=== PATIENT | male | born 1970 | race Caucasian/White ===

== ENCOUNTER 2017-03-18 12:57 | Emergency (ER) | payer SELFPAY ==
[~2017-03-18] VITALS: Ht 180.3 cm; Wt 108.9 kg
[2017-03-18 13:20] VITALS: BP 163/106
[2017-03-18] MEDS ORDERED: cefTRIAXone SOD 1,000 MG VL IM ONE (14:30)
== END 2017-03-18 14:53 | disposition home or self-care (01) ==
LOC: ER 12:57
DX: L03.211 Cellulitis of face (principal); K02.9 Dental caries, unspecified
CPT/HCPCS: 96372; 99283; J0696

== ENCOUNTER 2018-09-18 03:12 | Emergency (ER) | payer MEDICAID ==
[~2018-09-18] VITALS: Ht 177.8 cm; Wt 104.3 kg
[2018-09-18 04:06] LABS: Basophils # (auto) 0 uL; Basophils % (auto) 0.4 % (0.0-2.0); Eosinophils # (auto) 0.1 uL; Eosinophils % (auto) 1.5 % (0.0-7.0); Hematocrit 49.8 % (41.0-53.0); Hemoglobin 16.9 g/dL (13.5-17.5); Lymphocytes # (auto) 2.1 uL; Lymphocytes % (auto) 29.1 % (10.0-50.0); Mean Corpuscular Hemoglobin 30.7 pg (28.0-32.0); Mean Corpuscular Hgb Conc. 33.9 g/dL (32.0-36.0); Mean Corpuscular Volume 90.7 fL (80.0-100.0); Monocytes # (auto) 0.8 uL; Monocytes % (auto) 11.2 % (0.0-12.0); Neutrophils # (auto) 4.2 uL; Neutrophils % (auto) 57.8 % (37.0-80.0); Platelet Count (auto) 205 10^3/uL (140-450); Red Blood Cells 5.49 10^6/uL (4.5-5.90); Red Cell Distribution Width 13.2 % (11.8-14.3); White Blood Cell 7.3 10^3/uL (4.4-10.8)
[2018-09-18 04:15] LABS: Albumin 3.8 g/dL (3.4-5.0); Calcium 8.7 mg/dL (8.5-10.1); Potassium 4.2 mmol/L (3.5-5.1)
[2018-09-18 04:18] LABS: BUN/Creatinine Ratio 14.5; Bilirubin, Total 0.8 mg/dL (0.2-1.0); Total Protein 7.8 g/dL (6.4-8.2)
[2018-09-18] MEDS ORDERED: SODIUM CHLORIDE 0.9% 1,000 ML IV ONE (07:39)
[2018-09-18] MEDS ORDERED: KETOROLAC TROMETH 30 MG/ML 1ML VIAL IV ONE (07:45)
[2018-09-18] MEDS ORDERED: ONDANSETRON HCL 4 MG/2 ML VIAL IV ONE (07:45)
[2018-09-18] MEDS ORDERED: TETANUS-DIPTH-ACEL PERTUSSIS 0.5ML SYRG IM ONE (07:45)
[2018-09-18] MEDS ORDERED: cefTRIAXone 1GM/50ML D5W 50 ML IV ONE (07:45)
[2018-09-18] MEDS ORDERED: InsuLIN REG 1unit/0.01ml Soln (100units/ml) IV ONE (07:45)
[2018-09-18] MEDS ORDERED: ALPRAZolam 0.5 MG TAB PO ONE (11:30)
[2018-09-18 11:35] LABS: Urine WBC None Seen /hpf (0 - 3)
[2018-09-18 11:54] LABS: Urine Bacteria NONE SEEN /hpf (None Seen); Urine Blood Negative /uL (Negative); Urine Mucus FEW (None Seen); Urine Specific Gravity 1.044 (1.001-1.035)
[2018-09-18] MEDS ORDERED: THIAMINE INJ 100 MG, MULTIPLE VITAMIN 10 ML, FOLIC ACID 1 MG, MAGNESIUM SULF SDV 50% 8 ... IV SCH ×5 (12:00)
[2018-09-18 13:05] VITALS: BP 132/91
== END 2018-09-18 13:21 | disposition home or self-care (01) ==
LOC: ER 03:12
DX: L03.211 Cellulitis of face (principal); K02.9 Dental caries, unspecified; E11.9 Type 2 diabetes mellitus without complications; I10 Essential (primary) hypertension; E03.9 Hypothyroidism, unspecified; G62.9 Polyneuropathy, unspecified
CPT/HCPCS: 36415; 70486; 71046; 80053; 81001; 82962; 83036; 83735; 84443; 85025; 90471; 90715; 93005; 96365; 96366; 96367; 96375; 99284; J0696; J1885; J2405; J3411; J3475; J7030

== ENCOUNTER 2018-12-27 22:00 | Emergency (ER) | payer MEDICAID ==
[~2018-12-27] VITALS: Ht 180.3 cm; Wt 108.9 kg
[2018-12-27 22:39] VITALS: BP 153/108
[2018-12-28 00:05] LABS: Basophils # (auto) 0 uL; Basophils % (auto) 0.8 % (0.0-2.0); Eosinophils # (auto) 0.1 uL; Eosinophils % (auto) 1.9 % (0.0-7.0); Hematocrit 44.5 % (41.0-53.0); Hemoglobin 15.4 g/dL (13.5-17.5); Lymphocytes % (auto) 19.6 % (10.0-50.0); Mean Corpuscular Hemoglobin 31.7 pg (28.0-32.0); Mean Corpuscular Hgb Conc. 34.5 g/dL (32.0-36.0); Monocytes # (auto) 0.9 uL; Neutrophils # (auto) 3.2 uL; Neutrophils % (auto) 60.7 % (37.0-80.0); Nucleated Red Blood Cells % 0.1 %; Platelet Count (auto) 169 10^3/uL (140-450); Red Blood Cells 4.84 10^6/uL (4.5-5.90); Red Cell Distribution Width 13.6 % (11.8-14.3); White Blood Cell 5.3 10^3/uL (4.4-10.8)
[2018-12-28 00:14] LABS: Urine Bacteria NONE SEEN /hpf (None Seen); Urine Blood Negative /uL (Negative); Urine Mucus FEW (None Seen); Urine Specific Gravity 1.033 (1.001-1.035); Urine WBC None Seen /hpf (0 - 3)
[2018-12-28 00:24] LABS: INR 0.9 (0.9-1.15); Partial Thromboplastin Time 24.5 sec (23.78-33.04); Prothrombin Time 9.7 sec (9.27-12.13)
[2018-12-28 00:29] LABS: Albumin 4.1 g/dL (3.4-5.0); BUN/Creatinine Ratio 17.8; Calcium 8.5 mg/dL (8.5-10.1); Magnesium 2.4 mg/dL (1.6-2.6); Potassium 3.7 mmol/L (3.5-5.1)
[2018-12-28 00:35] LABS: Bilirubin, Total 0.5 mg/dL (0.2-1.0); Total Protein 7.6 g/dL (6.4-8.2)
== END 2018-12-28 05:14 | disposition left against medical advice (07) ==
LOC: ER 22:04
DX: R05 Cough (principal); Z53.21 Procedure and treatment not carried out due to patient leaving prior to being seen by health care provider
CPT/HCPCS: 36415; 71046; 80053; 81001; 83036; 83605; 83735; 83880; 84443; 84484; 85025; 85379; 85610; 85730; 87040; 93005

== ENCOUNTER 2018-12-28 16:06 | Emergency (ER) | payer MEDICAID ==
[~2018-12-28] VITALS: Ht 180.3 cm; Wt 108.9 kg
[2018-12-28] MEDS ORDERED: SODIUM CHLORIDE 0.9% 1,000 ML IVB ONE (17:47)
[2018-12-28 18:41] LABS: Basophils # (auto) 0 uL; Basophils % (auto) 0.3 % (0.0-2.0); Eosinophils # (auto) 0.1 uL; Eosinophils % (auto) 1.5 % (0.0-7.0); Hematocrit 44.5 % (41.0-53.0); Lymphocytes # (auto) 0.9 uL; Mean Corpuscular Hemoglobin 31.1 pg (28.0-32.0); Mean Corpuscular Hgb Conc. 33.7 g/dL (32.0-36.0); Mean Corpuscular Volume 92.4 fL (80.0-100.0); Monocytes # (auto) 0.9 uL; Monocytes % (auto) 16.4 % (0.0-12.0); Neutrophils # (auto) 3.6 uL; Neutrophils % (auto) 65.8 % (37.0-80.0); Platelet Count (auto) 168 10^3/uL (140-450); Red Blood Cells 4.82 10^6/uL (4.5-5.90); Red Cell Distribution Width 13.6 % (11.8-14.3); White Blood Cell 5.4 10^3/uL (4.4-10.8)
[2018-12-28 19:04] LABS: Urine Bacteria NONE SEEN /hpf (None Seen); Urine Blood Negative /uL (Negative); Urine Specific Gravity 1.029 (1.001-1.035); Urine WBC 1 /hpf (0 - 3)
[2018-12-28 19:16] LABS: INR 0.9 (0.9-1.15); Partial Thromboplastin Time 24.3 sec (23.78-33.04); Prothrombin Time 9.7 sec (9.27-12.13)
[2018-12-28 19:26] LABS: Albumin 3.8 g/dL (3.4-5.0); BUN/Creatinine Ratio 18.4; Calcium 8.9 mg/dL (8.5-10.1)
[2018-12-28 19:31] LABS: Bilirubin, Total 0.4 mg/dL (0.2-1.0); Total Protein 7.3 g/dL (6.4-8.2)
[2018-12-28 19:50] VITALS: BP 153/93
[2018-12-28] MEDS ORDERED: ASPirin-EC 81 mg tab PO ONE (20:45)
[2018-12-28] MEDS ORDERED: cefTRIAXone 1GM/50ML D5W 50 ML IV ONE (21:15)
== END 2018-12-28 21:38 | disposition home or self-care (01) ==
LOC: ER 16:06
DX: I24.9 Acute ischemic heart disease, unspecified (principal); J18.9 Pneumonia, unspecified organism; R79.89 Other specified abnormal findings of blood chemistry
CPT/HCPCS: 36415; 80053; 81001; 83605; 83735; 84484; 85025; 85379; 85610; 85730; 87040; 93005; 94761

== ENCOUNTER 2018-12-30 16:55 | Emergency (ER) | payer MEDICAID ==
[~2018-12-30] VITALS: Ht 180.3 cm; Wt 108.9 kg
[2018-12-30 17:07] VITALS: BP 140/109
[2018-12-30] MEDS ORDERED: ALBUTEROL SULF 2.5 MG/0.5ML(0.5%) NEB SOLN NEB ONE (19:00)
[2018-12-30] MEDS ORDERED: cefTRIAXone SOD 1,000 MG VL IM ONE (19:00)
[2018-12-30] MEDS ORDERED: IPRATROPIUM BROM 0.5 MG/2.5ML INH SOL NEB ONE (19:00)
[2018-12-30] MEDS ORDERED: methylPREDNISolone SOD SUCC 125 MG/2 ML VL IM ONE (19:00)
== END 2018-12-30 19:45 | disposition home or self-care (01) ==
LOC: ER 17:00
DX: J40 Bronchitis, not specified as acute or chronic (principal); F12.10 Cannabis abuse, uncomplicated; Z59.0 Homelessness
CPT/HCPCS: 93005; 94640; 96372; 99283; J0696; J2930; J7611; J7644

== ENCOUNTER 2024-07-19 10:34 | Inpatient (IN) | payer MEDICAID ==
[~2024-07-19] VITALS: Ht 175.3 cm; Wt 101.9 kg
--- NOTE | 2024-07-19 11:14 | ED.PDOC ---
Musculoskeletal HPI Comments A 53 YEAR OLD MALE PRESENTS TO THE ED WITH COMPLAINT OF LEFT 2ND TOE PAIN AND REDNESS. PATIENT STATES HE HAS BEEN EXPERIENCING REDNESS AND SWELLING ON THE TOES OF HIS LEFT FOOT DUE TO A FUNGAL INFECTION OFF AND ON FOR THE PAST 1.5 MONTHS. PATIENT REPORTS HE ACCIDENTALLY DROPPED A HAMMER ON HIS LEFT 2ND TOE 3 DAYS AGO AND IS NOW EXPERIENCING INCREASED REDNESS, SWELLING, AND PAIN TO HIS LEFT 2ND TOE. PATIENT NOTES HE RAN OUT OF HIS METFORMIN AND COREG 1 MONTH AGO AND HAS NOT TAKEN ANY MEDICATIONS SINCE THEN. AT THIS TIME, PT'S BLOOD PRESSURE IS HIGH. PATIENT DENIES FEVER, CHILLS, SHORTNESS OF BREATH, CHEST PAIN, ABDOMINAL PAIN, NAUSEA, VOMITING, HEADACHE, OR OTHER COMPLAINTS. NO OTHER SYMPTOMS OR MODIFYING FACTORS AT THIS TIME. PATIENT IS ALERT, ORIENTED X 4, AND HAS STEADY GAIT. Chief Complaint: Wound Check Time Seen by MD: 10:53 Primary Care Provider: NONE Reviewed Notes: Nurses Notes, Medications, Allergies Allergies: Coded Allergies: No Known Drug Allergy (Verified Allergy, Unknown, 09/18/18) Information Source: Patient Mode of Arrival: Ambulatory Location: Left Extremity Location: Toe 2 Timing: Days, Weeks Prehospital treatment: None Severity: Moderate Able to Move Extremity: Yes Bear Weight: Fully Pain: Moderate Mechanism: Blunt Trauma Circumstances: Accident Onset of Symptoms: After Trauma Symptoms: Swelling, Pain, Erythema DVT Risk Factors: NONE Last Tetanus: Unknown Associated signs and symptoms: Foot pain (LEFT 2ND TOE ) Past Medical History PAST MEDICAL HISTORY: DM, HTN, [place] Surgical History: Denies all surgeries Family History Family History: Reviewed,noncontributory to illness Social History Smoker: Cigarettes Alcohol: Rarely, Occasionally Drugs: Marijuana Lives In: Homeless Constitutional: denies: chills, diaphoresis, fatigue, fever, malaise, sweats, weakness, others EENTM: denies: blurred vision, double vision, ear bleeding, ear discharge, ear drainage, ear pain, ear ringing, eye pain, eye redness, hearing loss, mouth pain, mouth swelling, nasal discharge, nose bleeding, nose congestion, nose pain, photophobia, tearing, throat pain, throat swelling, voice changes, others Respiratory: denies: cough, hemoptysis, orthopnea, SOB at rest, shortness of breath, SOB with excertion, stridor, wheezing, others Cardiovascular: denies: chest pain, dizzy spells, diaphoresis, Dyspnea on exertion, edema, irregular heart beat, left arm pain, lightheadedness, palpitations, PND, syncope, others Gastrointestinal: denies: abdomen distended, abdominal pain, blood streaked bowels, constipated, diarrhea, dysphagia, difficulty swallowing, hematemesis, melena, nausea, poor appetite, poor fluid intake, rectal bleeding, rectal pain, vomiting, others Genitourinary: denies: burning, dysuria, flank pain, frequency, hematuria, incontinence, penile discharge, penile sore, pain, testicle pain, testicle swelling, urgency, others Neurological: denies: dizziness, fainting, headache, left sided numbness, left sided weakness, numbness, paresthesia, pre-existing deficit, right sided numbness, right sided weakness, seizure, speech problems, tingling, tremors, w eakness, others Musculoskeletal: reports: joint pain, joint swelling, others (LEFT 2ND TOE PAIN); denies: back pain, gout, muscle pain, muscle stiffness, neck pain Integumetry: reports: wounds (LEFT 2ND TOE ), others (WOUND ON LEFT 2ND TOE WITH REDNESS AND SWELLING); denies: bruises, change in color, change in hair/nails, dryness, laceration, lesions, lumps, rash Allergic/Immunocompromised: denies: Difficulty Healing, Frequent Infections, Hives, Itching, others Hematologic/Lymphatic: denies: anemia, blood clots, easy bleeding, easy bruising, swollen glands, others Endocrine: denies: excessive hunger, excessive sweating, excessive thirst, excessive urination, flushing, intolerance to cold, intolerance to heat, unexplained weight gain, unexplained weight loss, others Psychiatric: denies: anxiety, bipolar disorder, depression, hopeless, panic disorder, schizophrenia, sleepless, suicidal, others All Other Systems: Reviewed and Negative Physical Exam General Appearance: No Apparent Distress, Normal, Other (ANXIOUS ) HEENT: Normal ENT Inspection, PERRL/EOMI, Pharynx Normal, TMs Normal Neck: Full Range of Motion, Non-Tender, Normal, Normal Inspection Respiratory: Chest Non-Tender, Lungs Clear, No Accessory Muscle Use, No Respiratory Distress, Normal Breath Sounds Cardiovascular: No Edema, No JVD, No Murmur, No Gallop, Normal Peripheral Pulses, Regular Rate/Rhythm Breast Exam: Deferred Gastrointestinal: No Organomegaly, Non Tender, No Pulsatile Mass, Normal Bowel Sounds, Soft Genitalia: Deferred Pelvic: Deferred Rectal: Deferred Extremities: Decreased range of motion, No calf tenderness, Normal capillary refill, No pedal edema, Swelling (AND TENDERNESS WITH REDNESS ON LEFT 2ND TOE. ), Tender (AND SWELLING ON LEFT 2ND TOE, NO DEFORMITY. ) Musculoskeletal : Apperance: Normal Neurologic: Alert, obgyn hospitalist physician II-XII nml as Tested, No Motor Deficits, Normal Affect, Normal Mood, No Sensory Deficits Cerebellar Function: Normal Reflexes: Normal Skin: Dry, Warm, Wounds (LOCALIZED REDNESS, SWELLING AND CRUSTED WOUND ON LEFT 2ND TOE, DIABETIC FOOT ULCER, NO PUS DRAINAGE. ) Peripheral Pulses: 2+ carotid (R), 2+ carotid (L), 2+ dorsalis pedis (R), 2+ dorsalis pedis (L) Lymphatic: No Adenopathy Was a procedure done? Was a procedure done?: No Differential Diagnosis EXT Differential Diagnosis: Cellulitis, Fracture, Sprain, Contusion, Strain X-Ray, Labs, Meds, VS Vital Signs Date Time Temp Pulse Resp B/P (MAP) Pulse Ox O2 Delivery O2 Flow Rate FiO2 07/19/24 13:31 101 150/86 07/19/24 12:56 98.8 93 16 145/83 (103) 96 98.8 07/19/24 11:42 100 189/101 07/19/24 11:00 121 16 98 Room Air 07/19/24 11:00 98.6 121 16 191/124 (146) 98 98.6 07/19/24 10:45 98.6 121 16 175/113 (133) 98 Lab Test 07/19/24 11:23 07/19/24 11:10 07/19/24 10:43 Range/Units White Blood Count 7.8 4.4-10.8 10^3/uL Red Blood Count 5.10 4.5-5.90 10^6/uL Hemoglobin 16.9 13.5-17.5 g/dL Hematocrit 48.6 41.0-53.0 % Mean Corpuscular Volume 95.3 80.0-100.0 fL Mean Corpuscular Hemoglobin 33.1 H 28.0-32.0 pg Mean Corpuscular Hemoglobin Concent 34.7 32.0-36.0 g/dL Red Cell Distribution Width 13.2 11.8-14.3 % Platelet Count 212 140-450 10^3/uL Mean Platelet Volume 8.7 6.9-10.8 fL Neutrophils (%) (Auto) 75.1 37.0-80.0 % Lymphocytes (%) (Auto) 9.9 L 10.0-50.0 % Monocytes (%) (Auto) 14.5 H 0.0-12.0 % Eosinophils (%) (Auto) 0.2 0.0-7.0 % Basophils (%) (Auto) 0.3 0.0-2.0 % Neutrophils # (Auto) 5.9 1.6-8.6 10 ^3/uL Lymphocytes # (Auto) 0.8 0.4-5.4 10 ^3/uL Monocytes # (Auto) 1.1 0-1.3 10 ^3/uL Eosinophils # (Auto) 0 0-0.8 10 ^3/uL Basophils # (Auto) 0 0-0.2 10 ^3/uL Nucleated Red Blood Cells 0.0 % Sodium Level 130 L 136-145 mmol/L Potassium Level 4.5 3.5-5.1 mmol/L Chloride Level 98 98-107 mmol/L Carbon Dioxide Level 24 20-31 mmol/L Anion Gap 8 5-15 Blood Urea Nitrogen 15 9-23 mg/dL Creatinine 0.99 0.700-1.30 mg/dL Glomerular Filtration Rate Calc 90 >90 mL/min BUN/Creatinine Ratio 15.2 10.0-20.0 Serum Glucose 168 H 74-106 mg/dL Lactic Acid Level 1.6 0.4-2.0 mmol/L Calcium Level 9.6 8.7-10.4 mg/dL C-Reactive Protein High Sensitivity 2.39 H <1.0 mg/dL Urine Opiates Screen Neg NEGATIVE Urine Fentanyl Screen Neg NEGATIVE Urine Barbiturates Screen Neg NEGATIVE Urine Phencyclidine Screen Neg NEGATIVE Urine Amphetamines Screen Pos NEGATIVE Urine Benzodiazepines Screen Neg NEGATIVE Urine Cocaine Screen Neg NEGATIVE Urine Cannabinoids Screen Neg NEGATIVE POC Glucose 185 H 70-106 mg/dl Current Medications Medications (Trade) Dose Ordered Sig/Carmen Route Start Time Stop Time Status Last Admin Sodium Chloride 1,000 ml @ 1,000 mls/hr Q1H ONCE IV 07/19/24 11:15 07/19/24 12:14 DC 07/19/24 11:22 Labetalol HCl (Labetalol HCl) 20 mg ONCE ONCE IV 07/19/24 11:15 07/19/24 11:16 DC 07/19/24 11:42 Vancomycin HCl 200 ml @ 200 mls/hr ONCE ONCE IV 07/19/24 11:15 07/19/24 12:14 DC 07/19/24 11:42 Piperacillin Sod/ Tazobactam Sod 100 ml @ 100 mls/hr ONCE ONCE IV 07/19/24 11:15 07/19/24 12:14 DC 07/19/24 11:42 CLINICAL INDICATION: LEFT 2ND TOE PAIN POST INJURY TECHNIQUE: 3 views of the left foot XY L FOOT 3 VIEW XRAY Comparison: None FINDINGS/IMPRESSION: There is no evidence of acute fracture or dislocation. Mild poorly defined lucency within the terminal tuft of the 2nd distal phalanx. Finding is suggestive of mild acro-osteolysis which is a nonspecific finding. Soft tissue irregularity over the tip of the 2nd toe which may be related to the nail plate. No evidence of radiopaque foreign bodies. ATED BY: DUANE MERINO DO DICTATED DATE/TIME: 07/19/241240 SIGNED BY: DUANE MERINO DO SIGNED DATE/TIME: 07/19/241240 CC: X-Ray, Labs, Meds, VS Comment LABS ORDERED: CBC, BMP, UA, UDS, BLOOD CULTURE, LACTIC ACID W/REFLEX, CRP REVIEWED AND INTERPRETED RESULTS: CRP 2.39, METHAMPHETAMINE POSITIVE XR FOOT LT: [INTERPRETED BY ME. TUFT FRACTURE OF 2ND DISTAL PHALANX VISUALIZED. NO DISLOCATION SEEN. NO OSTEOMYELITIS SEEN. PENDING RADIOLOGY REVIEW.] TREATMENT: NS 1 L IV, ZOSYN 3.375 G IV, VANCOMYCIN 1 G IV, AND LABETALOL 20 MG IV A 53 YEAR OLD MALE PRESENTED TO THE ED C/O INJURY AND WOUND OF LEFT 2ND TOE . UPON MY PHYSICAL EXAMINATION, THE PATIENT HAD REDNESS, SWELLING AND A WOUND NOTED TO HIS LEFT 2ND TOE, TOENAILS ON LEFT FOOT WERE CONSISTENT WITH ONYCHOMYCOSIS. MY DIFFERENTIAL DIAGNOSIS INCLUDES, DIABETIC FOOT ULCER, CELLULITIS, ERYSIPELAS, ABSCESS, ONYCHOMYCOSIS, FRACTURE, CONTUSION, SPRAIN. LABS WERE ORDERED FOR THE PATIENT WHICH REVEALED AN ELEVATED CRP OF 2.39 AND METHAMPHETAMINE BEING POSITIVE URINE. PATIENT WAS MEDICATED HERE IN THE ED WITH NS 1 L IV, ZOSYN 3.375 G IV, VANCOMYCIN 1 G IV, AND LABETALOL 20 MG IV. AN X-RAY OF THE PATIENT'S LEFT FOOT WAS DONE WHICH REVEALED A TUFT FRACTURE OF THE 2ND DISTAL PHALANX WITH NO EVIDENCE OF OSTEOMYELITIS AT THIS TIME. DUE TO THE PATIENT'S DIABETIC FOOT WOUND I HAVE DETERMINED THE PATIENT NEEDS TO BE ADMITTED TO THIS HOSPITAL FOR FURTHER TREATMENT EVALUATION. ON-CALL HOSPITALIST WILL BE CONTACTED FOR ADMISSION OF THIS PATIENT. Images Reviewed?: Images reviewed and evaluated by me Time of 1ST Reevaluation: 13:00 Reevaluation 1ST: Unchanged Patient Education/Counseling: Diagnosis, Treatment Family Education/Counseling: Diagnosis, Treatment Departure 1 Departure Time of Disposition: 13:00 Impression: Primary Impression: Diabetic foot ulcer Qualified Codes: E11.621 - Type 2 diabetes mellitus with foot ulcer; L97.529 - Non-pressure chronic ulcer of other part of left foot with unspecified severity Additional Impressions: Fracture of distal phalanx of toe of left foot Hypertensive urgency Methamphetamine abuse Disposition: ADMITTED INPATIENT Admit to: Tele Condition: Serious Critical Care Note Critical Care Time?: No Stability Stability form required: Yes Unstable for transfer: Requires medication, ED Physician Assesment, Possible rapid decline I personally scribed for ROBBI FRAGA ([email or web address]) on 07/19/24 at 11:14. Electronically submitted by Miguel Beckman ([email or web address]). I personally scribed for ROBBI FRAGA ([email or web address]) on 07/19/24 at 13:16. Electronically submitted by Miguel Beckman ([email or web address]). ROBBI FRAGA Jul 19, 2024 11:14
[2024-07-19] MEDS: SODIUM CHLORIDE 0.9% 1,000 ML IV ONE (11:22)
[2024-07-19] MEDS: VANCOMYCIN 1GM/200ML PREMIX 200 ML IV ONE (11:42)
[2024-07-19] MEDS: LABETALOL HCL 20 MG/4 ML VL IV ONE (11:42)
[2024-07-19] MEDS: PIPERACILLIN-TAZOB 3.375GM 100 ML IV ONE (11:42)
[2024-07-19 11:56] LABS: Amphetamine Screen, Urine Pos (NEGATIVE); Barbiturate Scree,Urine Neg (NEGATIVE); Benzodiazephine Screen, Urine Neg (NEGATIVE)
[2024-07-19 11:57] LABS: Cannabinoid Screen, Urine Neg (NEGATIVE); Cocaine Screen, Urine Neg (NEGATIVE); Opiate Scree,Urine Neg (NEGATIVE); Phencyclidine Screen, Urine Neg (NEGATIVE)
[2024-07-19 12:01] LABS: Chloride 98 mmol/L (98-107); Sodium 130 mmol/L (136-145)
[2024-07-19 12:02] LABS: Anion Gap 8 (5-15); Calcium 9.6 mg/dL (8.7-10.4); Carbon Dioxide 24 mmol/L (20-31)
[2024-07-19 12:07] LABS: Glucose 168 mg/dL (74-106)
[2024-07-19 12:25] LABS: BUN/Creatinine Ratio 15.2 (10.0-20.0); Blood Urea Nitrogen 15 mg/dL (9-23); CRP High Sensitivity 2.39 mg/dL (<1.0); Potassium 4.5 mmol/L (3.5-5.1)
[2024-07-19 12:28] LABS: Basophils # (auto) 0 10 ^3/uL (0-0.2); Basophils % (auto) 0.3 % (0.0-2.0); Eosinophils # (auto) 0 10 ^3/uL (0-0.8); Eosinophils % (auto) 0.2 % (0.0-7.0); Hematocrit 48.6 % (41.0-53.0); Hemoglobin 16.9 g/dL (13.5-17.5); Lymphocytes # (auto) 0.8 10 ^3/uL (0.4-5.4); Lymphocytes % (auto) 9.9 % (10.0-50.0); Mean Corpuscular Hemoglobin 33.1 pg (28.0-32.0); Mean Corpuscular Hgb Conc. 34.7 g/dL (32.0-36.0); Mean Corpuscular Volume 95.3 fL (80.0-100.0); Monocytes # (auto) 1.1 10 ^3/uL (0-1.3); Monocytes % (auto) 14.5 % (0.0-12.0); Neutrophils # (auto) 5.9 10 ^3/uL (1.6-8.6); Neutrophils % (auto) 75.1 % (37.0-80.0); Platelet Count (auto) 212 10^3/uL (140-450); Red Cell Distribution Width 13.2 % (11.8-14.3); White Blood Cell 7.8 10^3/uL (4.4-10.8)
--- NOTE | 2024-07-19 12:44 | DVH ---
CLINICAL INDICATION: LEFT 2ND TOE PAIN POST INJURY TECHNIQUE: 3 views of the left foot XY L FOOT 3 VIEW XRAY Comparison: None FINDINGS/IMPRESSION: There is no evidence of acute fracture or dislocation. Mild poorly defined lucency within the terminal tuft of the 2nd distal phalanx. Finding is suggestive of mild acro-osteolysis which is a nonspecific finding. Soft tissue irregularity over the tip of the 2nd toe which may be related to the nail plate. No evide nce of radiopaque foreign bodies.
[2024-07-19 16:35] VITALS: PULSE 106; RESP 18; O2SAT 96
[2024-07-19] MEDS: InsuLIN REG 1unit/0.01ml Soln (100units/ml) IV ONE (16:57)
[2024-07-19] MEDS: HYDROcodone-ACET 10/325MG TAB PO ONE (16:58)
[2024-07-19] MEDS ORDERED: VANCOMYCIN PER PHARMACY 0 MG IV SCH (18:30)
[2024-07-19] MEDS ORDERED: DOCUSATE SOD 100 MG CAP PO PRN (18:30)
--- NOTE | 2024-07-19 18:45 | DVHHP2 ---
Admitting Diagnosis: Toe pain History of Present Illness Patient is 53 years old male presents in ED with a complaint of left 2nd toe pain and redness. Patient states that he has been experiencing redness and swe lling on the toe of left foot due to object fall on the toe about 1/2 month ago. Patient states that object fall on his 2nd toe again about three years ago and now he has experienced increased redness and swelling and pain. The patient states that he has ran out of medication and metformin encouraged will not take any medication since then. Patient currently has elevated blood pressure. Patient denies fever chills shortness for breath chest pain abdominal pain nausea vomiting headache or other complaint. No other symptoms or modifying factors at this time. Patient had x3, has steady gait PAST MEDICAL HISTORY: DM, HTN, [place] Surgical History: Denies all surgeries Family History Family History: Reviewed,noncontributory to illness Social History Smoker: Cigarettes Alcohol: Rarely, Occasionally Drugs: Marijuana Lives In: Homeless Allergies: Coded Allergies: No Known Drug Allergy (Verified Allergy, Unknown, 09/18/18) Vital Signs Vital Signs Date Time Temp Pulse Resp B/P (MAP) Pulse Ox O2 Delivery O2 Flow Rate FiO2 07/19/24 16:41 99.8 109 20 148/100 (116) 100 99.8 07/19/24 16:35 Room Air* 0 21 Physical Exam Generally-53 years old male, sitting on chair. NAD. HEENT: AT/NC Heart: RRR Lung: CTA b/l Abd: soft, nontender, nondistended Musculoskeletal-2nd toe open lesion, no gross bleeding, tender to palpate, erythematous up to the surrounding 1st and 2nd toe and ventral side of the foot. Neuro-AO x3, strength intact sensory intact Results Labs Test 07/19/24 15:58 07/19/24 11:23 07/19/24 11:10 Range/Units POC Glucose 299 H 70-106 mg/dl White Blood Count 7.8 4.4-10.8 10^3/uL Red Blood Count 5.10 4.5-5.90 10^6/uL Hemoglobin 16.9 13.5-17.5 g/dL Hematocrit 48.6 41.0-53.0 % Mean Corpuscular Volume 95.3 80.0-100.0 fL Mean Corpuscular Hemoglobin 33.1 H 28.0-32.0 pg Mean Corpuscular Hemoglobin Concent 34.7 32.0-36.0 g/dL Red Cell Distribution Width 13.2 11.8-14.3 % Platelet Count 212 140-450 10^3/uL Mean Platelet Volume 8.7 6.9-10.8 fL Neutrophils (%) (Auto) 75.1 37.0-80.0 % Lymphocytes (%) (Auto) 9.9 L 10.0-50.0 % Monocytes (%) (Auto) 14.5 H 0.0-12.0 % Eosinophils (%) (Auto) 0.2 0.0-7.0 % Basophils (%) (Auto) 0.3 0.0-2.0 % Neutrophils # (Auto) 5.9 1.6-8.6 10 ^3/uL Lymphocytes # (Auto) 0.8 0.4-5.4 10 ^3/uL Monocytes # (Auto) 1.1 0-1.3 10 ^3/uL Eosinophils # (Auto) 0 0-0.8 10 ^3/uL Basophils # (Auto) 0 0-0.2 10 ^3/uL Nucleated Red Blood Cells 0.0 % Sodium Level 130 L 136-145 mmol/L Potassium Level 4.5 3.5-5.1 mmol/L Chloride Level 98 98-107 mmol/L Carbon Dioxide Level 24 20-31 mmol/L Anion Gap 8 5-15 Blood Urea Nitrogen 15 9-23 mg/dL Creatinine 0.99 0.700-1.30 mg/dL Glomerular Filtration Rate Calc 90 >90 mL/min BUN/Creatinine Ratio 15.2 10.0-20.0 Serum Glucose 168 H 74-106 mg/dL Lactic Acid Level 1.6 0.4-2.0 mmol/L Calcium Level 9.6 8.7-10.4 mg/dL C-Reactive Protein High Sensitivity 2.39 H <1.0 mg/dL Urine Opiates Screen Neg NEGATIVE Urine Fentanyl Screen Neg NEGATIVE Urine Barbiturates Screen Neg NEGATIVE Urine Phencyclidine Screen Neg NEGATIVE Urine Amphetamines Screen Pos NEGATIVE Urine Benzodiazepines Screen Neg NEGATIVE Urine Cocaine Screen Neg NEGATIVE Urine Cannabinoids Screen Neg NEGATIVE Primary Diagnosis Medication noncompliance Cellulitis of left 2nd toe rule out osteomyelitis hypertensive urgency amphetamine use Plan Start vanco and Zosyn for broad-spectrum antibiotics. Follow the wound culture and blood culture Podiatry consult for left foot cellulitis possible osteomyelitis Elevated ESR Check MRI left foot to evaluate for possible osteomyelitis Pain control Sliding scale Hold metformin. Resume carvedilol hydralazine prn for SBP > 165 low carb diet Full code Lovenox for prophylaxis PPI for GI prophylaxis Plan discussed with: Patient Problems List: (1) Cellulitis of left toe (2) Methamphetamine abuse Status: Acute (3) Diabetic foot ulcer Status: Acute (4) Hypertensive urgency Status: Acute Date of Service: Jul 19, 2024 Billing Provider: TROY PARISI MD Common Visit Codes: [id number] INP/OBS CARE (HIGH) TROY PARISI MD Jul 19, 2024 18:45
[2024-07-19] MEDS: CARVEDILOL 3.125 MG TAB PO SCH (19:00)
[2024-07-19] MEDS ORDERED: DEXTROSE (50%) 50ML SYRG IV PRN (19:00)
[2024-07-19] MEDS: hydrALAZINE HCL 20 MG/ML VL IV SCH (19:40)
[2024-07-19 19:50] VITALS: PULSE 102; RESP 17; O2SAT 98
[2024-07-19] MEDS: PIPERACILLIN-TAZOB 3.375GM 100 ML IV SCH (20:12)
[2024-07-19] MEDS: ACETAMINOPHEN 325 MG TAB PO PRN (20:13)
[2024-07-19] MEDS: ACCU-CHEK COMFORT CURVE STRIP VI SCH (20:33)
[2024-07-19] MEDS: InsuLIN REG 1unit/0.01ml Soln (100units/ml) SC SCH (20:56)
[2024-07-19] MEDS: SODIUM CHLOR 0.9% PF (SALINE LOCK) 10ML VIAL/SYR IV SCH (21:31)
[2024-07-19] MEDS: HYDROmorphone HCL 2 MG/ML VL/or syr IV PRN (22:19)
[2024-07-19] MEDS: ONDANSETRON HCL 4 MG/2 ML VIAL IV PRN (22:20)
[2024-07-19] MEDS: HYDROcodone-ACET 5/325MG TAB PO PRN (22:37)
[2024-07-20 05:18] LABS: Basophils # (auto) 0 10 ^3/uL (0-0.2); Basophils % (auto) 0.2 % (0.0-2.0); Eosinophils # (auto) 0 10 ^3/uL (0-0.8); Eosinophils % (auto) 0.2 % (0.0-7.0); Hematocrit 45.4 % (41.0-53.0); Hemoglobin 15.8 g/dL (13.5-17.5); Lymphocytes # (auto) 0.5 10 ^3/uL (0.4-5.4); Lymphocytes % (auto) 8.3 % (10.0-50.0); Mean Corpuscular Hemoglobin 33.4 pg (28.0-32.0); Mean Corpuscular Hgb Conc. 34.7 g/dL (32.0-36.0); Mean Corpuscular Volume 96.1 fL (80.0-100.0); Monocytes # (auto) 0.8 10 ^3/uL (0-1.3); Neutrophils # (auto) 5.1 10 ^3/uL (1.6-8.6); Neutrophils % (auto) 78.3 % (37.0-80.0); Nucleated Red Blood Cells % 0.1 %; Platelet Count (auto) 163 10^3/uL (140-450); Red Blood Cells 4.72 10^6/uL (4.5-5.90); Red Cell Distribution Width 13.6 % (11.8-14.3); White Blood Cell 6.5 10^3/uL (4.4-10.8)
[2024-07-20 05:43] LABS: Alanine Aminotransferase 27 U/L (7-40); Albumin 4.1 g/dL (3.2-4.8); Alkaline Phosphatase 80 U/L (46-116); Anion Gap 6 (5-15); Aspartate Aminotransferase 24 U/L (13-40); BUN/Creatinine Ratio 14.7 (10.0-20.0); Blood Urea Nitrogen 15 mg/dL (9-23); Calcium 8.7 mg/dL (8.7-10.4); Carbon Dioxide 24 mmol/L (20-31); Chloride 102 mmol/L (98-107); Glucose 208 mg/dL (74-106); Potassium 3.8 mmol/L (3.5-5.1); Sodium 132 mmol/L (136-145)
[2024-07-20 05:44] LABS: Bilirubin, Total 0.7 mg/dL (0.2-1.0); Total Protein 7.1 g/dL (5.7-8.2)
[2024-07-20 07:27] VITALS: PULSE 75; RESP 16; O2SAT 95
[2024-07-20] MEDS: PANTOPRAZOLE 40 MG/10 ML VIAL INJ IV SCH (08:15)
[2024-07-20] MEDS: ENOXAPARIN SOD 40 MG/0.4 ML SYRINGE SC SCH (08:15)
[2024-07-20] MEDS ORDERED: VANCOMYCIN 1GM/200ML PREMIX 200 ML IV SCH (09:30)
[2024-07-20] MEDS: VANCOMYCIN 500 MG in D5W 5% 100 ML IV SCH (11:22)
[2024-07-20] MEDS ORDERED: VANCOMYCIN 1.25GM/250ML 250 ML IV SCH (12:00)
[2024-07-20 12:18] VITALS: BP 140/80; PULSE 94; RESP 16; TEMP 99.9; O2SAT 98
--- NOTE | 2024-07-20 12:59 | DVHPN2 ---
Reviewed: Care Plan, H&P, Labs, Medications, Previous Orders, Radiology Changes from previous H/P or p: No Changes General: Per HPI Objective Vitals Vital Signs Date Time Temp Pulse Resp B/P (MAP) Pulse Ox O2 Delivery O2 Flow Rate FiO2 07/20/24 10:35 97 18 130/82 (98) 96 07/20/24 08:18 98.2 98.2 07/20/24 07:27 Room Air* 0 21 Intake/Output Intake and Output 07/20/24 07:00 Intake Total 1450 ml Balance 1450 ml Intake IV Total 1450 ml Medications Current Medications Medications Dose Ordered Sig/Carmen Route Start Time Stop Time Status Last Admin Dose Admin Sodium Chloride 10 ml Q8HR IV 07/19/24 22:00 07/20/24 05:36 10 ML Docusate Sodium 100 mg BIDPRN PRN PO 07/19/24 18:30 Acetaminophen 650 mg Q6HP PRN PO 07/19/24 18:30 07/20/24 01:26 650 MG Acetaminophen/ Hydrocodone Bitart 1 tab Q4HP PRN PO 07/19/24 18:30 07/20/24 08:14 1 TAB Hydromorphone HCl 0.5 mg Q4HP PRN IV 07/19/24 18:30 07/20/24 04:12 0.5 MG Ondansetron HCl 4 mg Q4HP PRN IV 07/19/24 18:30 07/20/24 04:12 4 MG Enoxaparin Sodium 40 mg DAILY SC 07/20/24 10:00 07/20/24 08:15 40 MG Vancomycin HCl 0 ml @ 0 mls/hr UD IV 07/19/24 18:30 Piperacillin Sod/ Tazobactam Sod 100 ml @ 25 mls/hr Q8H IV 07/19/24 20:00 07/20/24 04:11 25 MLS/HR Hydralazine HCl 10 mg Q6H IV 07/19/24 18:45 07/19/24 19:40 10 MG Pantoprazole Sodium 40 mg DAILY IV 07/20/24 10:00 07/20/24 08:15 40 MG Carvedilol 3.125 mg BID PO 07/19/24 19:00 07/20/24 08:18 3.125 MG Diagnostic Test (Pha) 1 strip ACHS 07/19/24 22:00 07/20/24 11:37 1 STRIP Insulin Human Regular ACHS SC 07/19/24 22:00 07/20/24 11:42 4 UNITS Dextrose 50 ml UD PRN IV 07/19/24 19:00 Vancomycin HCl 500 mg/Dextrose 100 ml @ 200 mls/hr Q12H IV 07/20/24 11:00 07/20/24 11:22 200 MLS/HR Laboratory Results Laboratory Tests 07/20/24 04:25 Chemistry Test 07/20/24 04:25 Albumin 4.1 g/dL (3.2-4.8) Calcium Level 8.7 mg/dL (8.7-10.4) Total Protein 7.1 g/dL (5.7-8.2) LFT Test 07/20/24 04:25 Alanine Aminotransferase (ALT) 27 U/L (7-40) Alkaline Phosphatase 80 U/L (46-116) Aspartate Amino Transferase (AST) 24 U/L (13-40) Total Bilirubin 0.7 mg/dL (0.2-1.0) Microbiology Microbiology Date/Time Source Procedure Growth Status 07/19/24 11:23 Blood Blood Culture - Preliminary Resulted Assessment/Plan Assessment/Plan Patient is 53 years old male presents in ED with a complaint of left 2nd toe pain and redness. Patient states that he has been experiencing redness and swelling on the toe of left foot due to object fall on the toe about 1/2 month ago. Patient states that object fall on his 2nd toe again about three years ago and now he has experienced increased redness and swelling and pain. The patient states that he has ran out of medication and metformin encouraged will not take any medication since then. Patient currently has elevated blood pressure. Patient denies fever chills shortness for breath chest pain abdominal pain nausea vomiting headache or other complaint. No other symptoms or modifying factors at this time. Patient had x3, has steady gait Medication noncompliance Cellulitis of left 2nd toe rule out osteomyelitis hypertensive urgency amphetamine use initial treatments Start vanco and Zosyn for broad-spectrum antibiotics. Follow the wound culture and blood culture Podiatry consult for left foot cellulitis possible osteomyelitis Elevated ESR Check MRI left foot to evaluate for possible osteomyelitis Pain control Sliding scale Hold metformin. Resume carvedilol hydralazine prn for SBP > 165 07/20/2024: continue with IV ABx. Podiatry is consulted. will f/u with recommendations Plan discussed with: Patient Date of Service: Jul 20, 2024 Billing Provider: NEFTALI LEIVA DO Common Visit Codes: [id number] INP/OBS CARE(HIGH) NEFTALI LEIVA DO Jul 20, 2024 12:59
--- NOTE | 2024-07-20 14:27 | DVH ---
EXAMINATION: MRI MRI L FOOT WO CONTRAST TECHNIQUE: MRI of the left foot was performed. The following sequences were obtained without contras t: T1 axial, stir axial, T1 coronal, stir coronal, T1 sagittal, stir sagittal HISTORY: LT TOE INFECTION; R/O OM COMPARISON: Left foot radiographs on 07/19/24 FINDINGS: No evidence of acute fracture or dislocation. At the terminal tuft of the 2nd distal phalanx there is cortical loss with mild associated T1 hypoint ensity and STIR hyperintensity. There is no evidence of well-defined mass lesions; however evaluation is limited without intravenous contrast. Marrow intensity in the remainder of the foot appears aba l. The partially visualized plantar fascia appears normal. The partially visualized sinus tarsi is unrem arkable. The visualized tendons in the foot are unremarkable. There is mild subcutaneous edema withi n the 2nd toe. No focal fluid collections are seen. IMPRESSION: Evaluation is limited due to lack of intravenous contrast. 1. Marrow edema in the 2nd distal phalanx with associated cortical erosion at the terminal tuft. Find ings could represent osteomyelitis or posttraumatic acro-osteolysis. Clinical correlation recommended . 2. Soft tissue swelling in the 2nd toe. No evidence of focal fluid collections.
[2024-07-20] MEDS ORDERED: TRAZ-228 PO (16:14)
[2024-07-20] MEDS ORDERED: METF-370 PO (16:15)
[2024-07-20] MEDS ORDERED: CARV3.1240 PO (16:15)
[2024-07-20 17:07] VITALS: TEMP 99.8
[2024-07-20 18:25] VITALS: BP 126/76; PULSE 110; RESP 16; TEMP 101.4; O2SAT 95
--- NOTE | 2024-07-20 18:51 | DVH ---
CHEST RADIOGRAPH Indication:procedure Technique: Single frontal view of the chest was obtained Comparison: None FINDINGS: Lines and Tubes: None Lungs: No focal consolidation. Pleura: No effusion. No pneumothorax. Cardiomediastinal contours: Unremarkable Bones: No acute osseous abnormality. IMPRESSION: 1. No acute cardiopulmonary disease.
[2024-07-20 20:00] VITALS: PULSE 93; RESP 20; O2SAT 96
[2024-07-20 21:00] VITALS: BP 136/86; PULSE 93; RESP 20; TEMP 100; O2SAT 96
[2024-07-21] VITALS (9 sets, daily range): BP systolic 114–136; BP diastolic 72–87; PULSE 57–92; RESP 10–20; TEMP 97.6–98.6; O2SAT 92–97
[2024-07-21 06:32] LABS: Basophils # (auto) 0 10 ^3/uL (0-0.2); Basophils % (auto) 0.2 % (0.0-2.0); Eosinophils # (auto) 0 10 ^3/uL (0-0.8); Eosinophils % (auto) 0.3 % (0.0-7.0); Hematocrit 43.1 % (41.0-53.0); Lymphocytes # (auto) 0.5 10 ^3/uL (0.4-5.4); Lymphocytes % (auto) 9.2 % (10.0-50.0); Mean Corpuscular Hgb Conc. 34.7 g/dL (32.0-36.0); Mean Corpuscular Volume 95.2 fL (80.0-100.0); Neutrophils # (auto) 4.2 10 ^3/uL (1.6-8.6); Neutrophils % (auto) 72.3 % (37.0-80.0); Platelet Count (auto) 158 10^3/uL (140-450); Red Blood Cells 4.53 10^6/uL (4.5-5.90); Red Cell Distribution Width 13.1 % (11.8-14.3); White Blood Cell 5.7 10^3/uL (4.4-10.8)
[2024-07-21 06:42] LABS: INR 1.02 (0.9-1.15); Partial Thromboplastin Time 29.4 SEC (24.5-34.5); Prothrombin Time 10.8 sec (9.3-11.8)
[2024-07-21 06:49] LABS: Alanine Aminotransferase 25 U/L (7-40); Alkaline Phosphatase 74 U/L (46-116); Anion Gap 7 (5-15); Blood Urea Nitrogen 12 mg/dL (9-23); Calcium 8.7 mg/dL (8.7-10.4); Carbon Dioxide 23 mmol/L (20-31); Chloride 101 mmol/L (98-107); Glucose 139 mg/dL (74-106); Potassium 3.6 mmol/L (3.5-5.1); Sodium 131 mmol/L (136-145)
[2024-07-21 06:50] LABS: Albumin 3.9 g/dL (3.2-4.8); Aspartate Aminotransferase 23 U/L (13-40)
[2024-07-21 06:51] LABS: Bilirubin, Total 0.4 mg/dL (0.2-1.0); Total Protein 6.8 g/dL (5.7-8.2)
--- NOTE | 2024-07-21 10:13 | DVHINCON2 ---
Date Seen: Jul 21, 2024 Reason for Consultation Left 2nd toe wound History of Present Illness Patient is 53 years old male presents in ED with a complaint of left 2nd toe pain and redness. Patient states that he has been experiencing redness and swelling on the toe of left foot due to object fall on the toe about 1/2 month ago. Patient states that object fall on his 2nd toe again about three years ago and now he has experienced increased redness and swelling and pain. The patient states that he has ran out of medication and metformin encouraged will not take any medication since then. Patient currently has elevated blood pressure. Patient denies fever chills shortness for breath chest pain abdominal pain nausea vomiting headache or other complaint. No other symptoms or modifying factors at this time. Patient had x3, has steady gait Past Medical History See H&P Past Surgical History See H&P Family History: Patient reports no known family medical history. Allergies: Coded Allergies: No Known Drug Allergy (Verified Allergy, Unknown, 09/18/18) Home Meds Reported Medications Carvedilol (Carvedilol) 3.125 Mg Tab, 3.125 MG PO BID for 30 Days, MG 07/20/24 Metformin Hydrochloride (Metformin Hcl) 500 Mg Tab, 500 MG PO IBID for 30 Days, MG 07/20/24 Trazodone Hcl (Trazodone Hcl) 100 Mg Tab, 1 TAB PO 07/20/24 Current Medications Current Medications Medications (Trade) Dose Ordered Sig/Carmen Route PRN Reason Start Time Stop Time Status Last Admin Vancomycin HCl 250 ml @ 200 mls/hr Q24H IV 07/20/24 12:00 07/20/24 10:00 DC Vancomycin HCl 500 mg/Dextrose 100 ml @ 200 mls/hr Q12H IV 07/20/24 11:00 07/20/24 14:55 DC 07/20/24 11:22 Vancomycin HCl 250 ml @ 200 mls/hr Q24H IV 07/21/24 12:00 Piperacillin Sod/ Tazobactam Sod 100 ml @ 25 mls/hr Q8H IV 07/21/24 14:00 Vital Signs Vital Signs Date Time Temp Pulse Resp B/P (MAP) Pulse Ox O2 Delivery O2 Flow Rate FiO2 07/21/24 09:32 98.0 75 16 134/83 (100) 97 98.0 07/21/24 08:00 Room Air* 0 21 Physical Exam DERMATOLOGIC EXAM: - Skin is dry and cool to the touch dry bilaterally. - Nails 1-5 of the bilateral foot are thickened, discolored, dystrophic, and tender to palpate with subungual debris - Hair loss noted to bilateral feet Wound #1: Location: Left 2nd toe Measurements: Length 1 cm x width 1 cm x depth 1 cm. Wound margins: Hyperkeratotic. Wound base: Full thickness. General Appearance: Healthy and bleeding. Probes to Bone: Yes Purulent drainage: No Serous drainage: No Erythema: To the toe VASCULAR EXAM: - DP and PT pulses are palpable bilaterally. - INSURANCE VERIFIER is brisk to all digits. - Feet are cool to touch compared to lower legs bilaterally. NEUROLOGIC EXAM: - Normal light touch sensation to the superficial peroneal, deep peroneal, sural, saphenous, and tibial nerve branches. - Protective sensation is diminished as tested with a 5.07 10g Bryan-Jaswinder bilaterally. MUSCULOSKELETAL EXAM: - No gross deformities - Muscle strength is 5/5 and active motion is pain-free and symmetrical bilaterally - No pain or crepitation with passive range of motion bilaterally to all major pedal joints Labs/Diagnostic Data Labs Test 07/21/24 05:33 07/21/24 05:16 07/19/24 11:23 07/19/24 11:10 Range/Units POC Glucose 154 H 70-106 mg/dl White Blood Count 5.7 4.4-10.8 10^3/uL Red Blood Count 4.53 4.5-5.90 10^6/uL Hemoglobin 15.0 13.5-17.5 g/dL Hematocrit 43.1 41.0-53.0 % Mean Corpuscular Volume 95.2 80.0-100.0 fL Mean Corpuscular Hemoglobin 33.0 H 28.0-32.0 pg Mean Corpuscular Hemoglobin Concent 34.7 32.0-36.0 g/dL Red Cell Distribution Width 13.1 11.8-14.3 % Platelet Count 158 140-450 10^3/uL Mean Platelet Volume 8.4 6.9-10.8 fL Neutrophils (%) (Auto) 72.3 37.0-80.0 % Lymphocytes (%) (Auto) 9.2 L 10.0-50.0 % Monocytes (%) (Auto) 18.0 H 0.0-12.0 % Eosinophils (%) (Auto) 0.3 0.0-7.0 % Basophils (%) (Auto) 0.2 0.0-2.0 % Neutrophils # (Auto) 4.2 1.6-8.6 10 ^3/uL Lymphocytes # (Auto) 0.5 0.4-5.4 10 ^3/uL Monocytes # (Auto) 1.0 0-1.3 10 ^3/uL Eosinophils # (Auto) 0 0-0.8 10 ^3/uL Basophils # (Auto) 0 0-0.2 10 ^3/uL Nucleated Red Blood Cells 0.0 % Prothrombin Time 10.8 9.3-11.8 sec Prothrombin Time INR 1.02 0.9-1.15 Activated Partial Thromboplast Time 29.4 24.5-34.5 SEC Sodium Level 131 L 136-145 mmol/L Potassium Level 3.6 3.5-5.1 mmol/L Chloride Level 101 98-107 mmol/L Carbon Dioxide Level 23 20-31 mmol/L Anion Gap 7 5-15 Blood Urea Nitrogen 12 9-23 mg/dL Creatinine 0.86 0.700-1.30 mg/dL Glomerular Filtration Rate Calc 102 >90 mL/min BUN/Creatinine Ratio 14.0 10.0-20.0 Serum Glucose 139 H 74-106 mg/dL Calcium Level 8.7 8.7-10.4 mg/dL Total Bilirubin 0.4 0.2-1.0 mg/dL Aspartate Amino Transferase (AST) 23 13-40 U/L Alanine Aminotransferase (ALT) 25 7-40 U/L Alkaline Phosphatase 74 46-116 U/L Total Protein 6.8 5.7-8.2 g/dL Albumin 3.9 3.2-4.8 g/dL Lactic Acid Level 1.6 0.4-2.0 mmol/L C-Reactive Protein High Sensitivity 2.39 H <1.0 mg/dL Urine Opiates Screen Neg NEGATIVE Urine Fentanyl Screen Neg NEGATIVE Urine Barbiturates Screen Neg NEGATIVE Urine Phencyclidine Screen Neg NEGATIVE Urine Amphetamines Screen Pos NEGATIVE Urine Benzodiazepines Screen Neg NEGATIVE Urine Cocaine Screen Neg NEGATIVE Urine Cannabinoids Screen Neg NEGATIVE Microbiology Date/Time Source Procedure Growth Status 07/19/24 11:23 Blood Blood Culture - Preliminary Resulted Problems(with codes): (1) Cellulitis of external cheek, left (2) Caries (3) Diabetic foot ulcer (4) Methamphetamine abuse (5) Hypertensive urgency (6) Fracture of distal phalanx of toe of left foot (7) Cellulitis of left toe Plan/Recommendation ASSESSMENT: Patient is a 53-year-old male seen on the floor for a worsening left 2nd toe amputation PLAN: - The patients chart was reviewed, clinical findings were discussed with the patient, the etiologies of the conditions were discussed in detail, and a treatment plan was agreed to at this time, with both oral and written instructions provided. - reviewed the MRI concerning for osteomyelitis of the left 2nd digit - discussed with the patient that due to the toe being excessively long and concern for bone infection recommend that we take of the end of the toe to prevent any further wound breakdown in get rid of the bone infection - patient has been NPO since midnight - we will take to the OR this afternoon - we will get cultures - patient will likely only need a few weeks of oral antibiotics after procedure All questions were answered and concerns addressed to the patient's satisfaction. The patient was given the phone number to the clinic and was told how to make contact with the clinic should any concerns or questions arise. Patient understands that if any questions or concerns arise prior to the next appointment, we should be contacted immediately. FOLLOW-UP: Continue to follow while inpatient Plan discussed with: Patient Date of Service: Jul 21, 2024 Billing Provider: RHIANNON SIERRA DPM Common Visit Codes: [id number] INP/OBS CARE (MOD) RHIANNON SIERRA DPM Jul 21, 2024 10:13
[2024-07-21] MEDS: VANCOMYCIN 1.25GM/250ML 250 ML IV SCH (12:00)
[2024-07-21] MEDS ORDERED: DexAMETHasone SOD PHOS 10MG/1ML VIAL INJ ONE (13:01)
[2024-07-21] MEDS ORDERED: LIDOCAINE 1% INJ PF 5ML AMP ONE (13:01)
[2024-07-21] MEDS ORDERED: ONDANSETRON HCL 4 MG/2 ML VIAL ONE (13:01)
[2024-07-21] MEDS ORDERED: GLYCOPYRROLATE 0.2 MG/ML 1ML VIAL ONE (13:01)
[2024-07-21] MEDS ORDERED: KETOROLAC TROMETH 30 MG/ML 1ML VIAL ONE (13:01)
[2024-07-21] MEDS ORDERED: KETAMINE 50mg/ML 1ml syringe ONE (13:01)
[2024-07-21] MEDS ORDERED: PROPOFOL 10 MG/ML 20 ML IV ONE (13:01)
[2024-07-21] MEDS: ceFAZolin 2 GM/D5W100ml 100 ML IV ONE (13:02)
--- NOTE | 2024-07-21 13:37 | DVHOP2 ---
Operative Report - 2 Report Details Date: 07/21/24 Preop Diagnosis: 1. Left foot second toe osteomyelitis 2. Left foot cellulitis 3. Left foot ulcer Postop Diagnosis: Same as preop Surgeon: Rhiannon Sierra MD Anesthesiologist: See anesthesia Anesthesia: Mac Drains: None Implant: None Consent: The patient was informed of the risks and benefits of the procedure. These include but are not limited to complications of anesthesia, postoperative infection, incomplete relief of symptoms, recurrence of symptoms, damage to blood vessels, nerves and tendons, deep venous thrombosis, pulmonary embolism and possible need for repeat surgery in the future. Complications: None Estimated Blood Loss: Minimal Fluids: See anesthesia Findings: Proximally 1 cc of purulent drainage upon incision Indications for Surgery: Worsening left 2nd toe wound Name of Procedure Performed 1. Left foot I&D to bone (61655) 2. Left foot second toe DIPJ amputation (40861) 3. Left foot bone biopsy () Procedure Details Procedure Details: PRE-PROCEDURE INFORMATION: In the pre-op holding area, the extremity to be operated on was clearly marked and the patient verified correct laterality of the marking. The patient was transferred to the OR table and placed in a supine position. A timeout was performed in which identification of the correct patient, procedure, location, and materials was done. The _ foot and leg were prepped and draped in normal sterile fashion. The foot and leg were exsanguinated and the _ tourniquet was inflated to 300 mmHg. DESCRIPTION OF PROCEDURE: Attention was directed to the left 2nd toe where area of fluctuance was noted. An incision was made over this area and was deepened through blunt dissection. The incision was deepened to the level of abscess and bone. Care was taken to the dissection to avoid any neurovascular and tendinous structures. The incision was deepened to the left 2nd toe abscess was identified. The abscess appeared to be purulent fluid consistent with pus, proximally 1 cc. It was apparent after the abscess was drained that there was necrosis of the distal tuft on that 2nd toe. An amputation was then performed that the DIPJ, using a 15 blade. The bone was then sent to pathology. After the abscess was drained, the area was irrigated with 3 L normal saline using cysto tubing. Deep cultures were then obtained from the 2nd toe. The area was then inspected and any areas of tracking, especially along the tendons were also drained. The wound was then closed with 2-0 nylon. A dry sterile dressing was placed on the surgical extremity. The patient was placed in a postop shoe. POSTOPERATIVE INFORMATION: The patient tolerated the above noted procedure and anesthesia well and was transferred to the PACU with vital signs stable, and vascular status intact with capillary refill intact to all digits. Patient will return to the floor for continued antibiotics. All of the necrotic bone was mood patient can be discharged with 2 weeks of oral antibiotics. Cultures were taken. Patient can weightbear as tolerated in a postop shoe. Patient can follow up with me in 1 week. Specimen: Left 2nd distal tuft. Condition Good Disposition Still a Patient RHIANNON SIERRA DPM Jul 21, 2024 13:37
[2024-07-21] MEDS ORDERED: fentaNYL CITRATE 100 MCG/2 ML VL IV PRN (13:45)
[2024-07-21] MEDS ORDERED: hydrALAZINE HCL 20 MG/ML VL IV PRN (13:45)
[2024-07-21] MEDS ORDERED: ONDANSETRON HCL 4 MG/2 ML VIAL IV PRN (13:45)
[2024-07-21] MEDS ORDERED: ePHEDrine SULFATE 50 MG/ML AMP IV PRN (13:45)
[2024-07-21] MEDS ORDERED: FLUMAZENIL 0.1 MG/ML INJ 10ML MDV IV PRN (13:45)
[2024-07-21] MEDS ORDERED: HYDROmorphone HCL 2 MG/ML VL/or syr IV PRN (13:45)
[2024-07-21] MEDS ORDERED: NALOXONE HCL 0.4 MG/ML VIAL IV PRN (13:45)
[2024-07-21] MEDS: PIPERACILLIN-TAZOB 3.375GM 100 ML IV SCH (15:18)
--- NOTE | 2024-07-21 15:51 | DVH ---
EXAM: US LT LOWER DVT Clinical History: Left calf pain Comparison: None Technique: Duplex Doppler evaluation of the deep venous systems of the left lower extremity from the common femo ral veins to the popliteal veins including color Doppler and spectral/pulsed waveform analysis was pe rformed. Findings: No visible intraluminal venous thrombus. No evidence of incompressibility or abnormal color or spectr al Doppler flow visualized in the deep left lower extremity veins. Proximal greater saphenous vein is grossly unremarkable. Impression: 1. No sonographic evidence of deep venous thrombosis throughout the left lower extremity from the pop liteal vein to the common femoral vein.
--- NOTE | 2024-07-21 22:23 | DVHPN2 ---
Subjective Patient is 53 years old male presents in ED with a complaint of left 2nd toe pain and redness. Patient states that he has been experiencing redness and swelling on the toe of left foot due to object fall on the toe about 1/2 month ago. Patient states that object fall on his 2nd toe again about three years ago and now he has experienced increased redness and swelling and pain. The patient states that he has ran out of medication and metformin encouraged will not take any medication since then. Patient currently has elevated blood pressure. Patient denies fever chills shortness for breath chest pain abdominal pain nausea vomiting headache or other complaint. No other symptoms or modifying factors at this time. Patient had x3, has steady gait Update - 07/21 : Patient is scheduled for OR today for left 2nd toe amputation/I&D/biopsy. Patient is homeless Reviewed: Care Plan, H&P, Labs, Medications, Previous Orders, Radiology Changes from previous H/P or p: No Changes General: Per HPI Objective Vitals Vital Signs Date Time Temp Pulse Resp B/P (MAP) Pulse Ox O2 Delivery O2 Flow Rate FiO2 07/21/24 21:00 97.6 57 18 133/72 (92) 97 97.6 07/21/24 13:50 Room Air 0 96 Intake/Output Intake and Output 07/21/24 07:00 Intake Total 725 ml Output Total 1400 ml Balance -675 ml Intake Oral 425 ml IV Total 300 ml Output Urine Total 1400 ml Exam - GEN: Healthy appearing, well-developed, NAD. - HEENT: NC/AT, PERRLA, MMM. - CV: RRR, no m/r/g. - LUNGS: CTAB, no w/r/c. - ABD: Soft, NT/ND, NBS, no masses or organomegaly. - EXTREM: Legs cold. Lower extremity pulses weak bilaterally. Left foot in boot, bandage is CDI - NEURO: ambulating. grossly no focal deficits, CN2-12 intact Medications Current Medications Medications Dose Ordered Sig/Carmen Route Start Time Stop Time Status Last Admin Dose Admin Sodium Chloride 10 ml Q8HR IV 07/19/24 22:00 07/21/24 14:23 10 ML Docusate Sodium 100 mg BIDPRN PRN PO 07/19/24 18:30 Acetaminophen 650 mg Q6HP PRN PO 07/19/24 18:30 07/20/24 16:07 650 MG Acetaminophen/ Hydrocodone Bitart 1 tab Q4HP PRN PO 07/19/24 18:30 07/21/24 04:23 1 TAB Hydromorphone HCl 0.5 mg Q4HP PRN IV 07/19/24 18:30 07/21/24 17:23 0.5 MG Ondansetron HCl 4 mg Q4HP PRN IV 07/19/24 18:30 07/20/24 04:12 4 MG Enoxaparin Sodium 40 mg DAILY SC 07/20/24 10:00 07/20/24 08:15 40 MG Vancomycin HCl 0 ml @ 0 mls/hr UD IV 07/19/24 18:30 Hydralazine HCl 10 mg Q6H IV 07/19/24 18:45 07/20/24 18:54 10 MG Pantoprazole Sodium 40 mg DAILY IV 07/20/24 10:00 07/21/24 10:35 40 MG Carvedilol 3.125 mg BID PO 07/19/24 19:00 07/20/24 08:18 3.125 MG Diagnostic Test (Pha) 1 strip ACHS 07/19/24 22:00 07/21/24 17:22 1 STRIP Insulin Human Regular ACHS SC 07/19/24 22:00 07/21/24 18:01 8 UNITS Dextrose 50 ml UD PRN IV 07/19/24 19:00 Vancomycin HCl 250 ml @ 200 mls/hr Q24H IV 07/21/24 12:00 07/21/24 19:33 200 MLS/HR Piperacillin Sod/ Tazobactam Sod 100 ml @ 25 mls/hr Q8H IV 07/21/24 14:00 07/21/24 15:18 25 MLS/HR Laboratory Results Laboratory Tests 07/21/24 05:16 Chemistry Test 07/21/24 05:16 Albumin 3.9 g/dL (3.2-4.8) Calcium Level 8.7 mg/dL (8.7-10.4) Total Protein 6.8 g/dL (5.7-8.2) Coagulation Test 07/21/24 05:16 Prothrombin Time 10.8 sec (9.3-11.8) Prothrombin Time INR 1.02 (0.9-1.15) Activated Partial Thromboplast Time 29.4 SEC (24.5-34.5) LFT Test 07/21/24 05:16 Alanine Aminotransferase (ALT) 25 U/L (7-40) Alkaline Phosphatase 74 U/L (46-116) Aspartate Amino Transferase (AST) 23 U/L (13-40) Total Bilirubin 0.4 mg/dL (0.2-1.0) Microbiology Microbiology Date/Time Source Procedure Growth Status 07/20/24 08:00 Foot Left Gram Stain - Final Resulted 07/20/24 08:00 Foot Left Wound Culture - Preliminary Resulted 07/19/24 11:23 Blood Blood Culture - Preliminary Resulted Labs and/or images reviewed: Labs reviewed by me, Image(s) reviewed by me Assessment/Plan Assessment/Plan Left 2nd toe osteomyelitis Left foot cellulitis - left foot MRI concerning for osteomyelitis of 2nd toe - UDS positive for meth - podiatry following length for OR today - on broad-spectrum antibiotics with vanc and Zosyn - okay to advance diet after OR, diabetic diet - will need more antibiotic outpatient, pending Podiatry review Diabetic diet tolerating Diet no GI prophylaxis needed patient ambulating DVT prophylaxis- requiring more bedrest-will need Lovenox Continue med surge admission Plan discussed with: Patient Date of Service: Jul 21, 2024 Billing Provider: RUTHIE SEPULVEDA MD Common Visit Codes: [id number] INP/OBS CARE(HIGH) RUTHIE SEPULVEDA MD Jul 21, 2024 22:23
[2024-07-22] VITALS (8 sets, daily range): BP systolic 114–141; BP diastolic 72–94; PULSE 51–67; RESP 17–20; TEMP 97.5–98.8; O2SAT 93–97
[2024-07-22 05:41] LABS: Basophils # (auto) 0 10 ^3/uL (0-0.2); Basophils % (auto) 0.1 % (0.0-2.0); Eosinophils # (auto) 0 10 ^3/uL (0-0.8); Hematocrit 44.2 % (41.0-53.0); Hemoglobin 15.2 g/dL (13.5-17.5); Lymphocytes # (auto) 0.6 10 ^3/uL (0.4-5.4); Lymphocytes % (auto) 11.5 % (10.0-50.0); Mean Corpuscular Hemoglobin 32.9 pg (28.0-32.0); Mean Corpuscular Hgb Conc. 34.3 g/dL (32.0-36.0); Mean Corpuscular Volume 95.9 fL (80.0-100.0); Monocytes # (auto) 0.6 10 ^3/uL (0-1.3); Monocytes % (auto) 10.6 % (0.0-12.0); Neutrophils # (auto) 4.1 10 ^3/uL (1.6-8.6); Neutrophils % (auto) 77.8 % (37.0-80.0); Platelet Count (auto) 192 10^3/uL (140-450); Red Blood Cells 4.61 10^6/uL (4.5-5.90); Red Cell Distribution Width 13.1 % (11.8-14.3); White Blood Cell 5.3 10^3/uL (4.4-10.8)
[2024-07-22 05:50] LABS: Alanine Aminotransferase 22 U/L (7-40); Albumin 3.6 g/dL (3.2-4.8); Alkaline Phosphatase 68 U/L (46-116); Anion Gap 4 (5-15); Aspartate Aminotransferase 16 U/L (13-40); BUN/Creatinine Ratio 16.3 (10.0-20.0); Bilirubin, Total 0.3 mg/dL (0.2-1.0); Blood Urea Nitrogen 16 mg/dL (9-23); Calcium 8.8 mg/dL (8.7-10.4); Carbon Dioxide 26 mmol/L (20-31); Chloride 103 mmol/L (98-107); Potassium 4.4 mmol/L (3.5-5.1); Sodium 133 mmol/L (136-145)
[2024-07-22 05:51] LABS: Total Protein 6.4 g/dL (5.7-8.2)
[2024-07-22 06:06] LABS: Glucose 261 mg/dL (74-106)
--- NOTE | 2024-07-22 20:52 | DVHPN2 ---
Subjective Patient is 53 years old male presents in ED with a complaint of left 2nd toe pain and redness. Patient states that he has been experiencing redness and swelling on the toe of left foot due to object fall on the toe about 1/2 month ago. Patient states that object fall on his 2nd toe again about three years ago and now he has experienced increased redness and swelling and pain. The patient states that he has ran out of medication and metformin encouraged will not take any medication since then. Patient currently has elevated blood pressure. Patient denies fever chills shortness for breath chest pain abdominal pain nausea vomiting headache or other complaint. No other symptoms or modifying factors at this time. Patient had x3, has steady gait Update - 07/21 : Patient is scheduled for OR today for left 2nd toe amputation/I&D/biopsy. Patient is homeless - 07/22 : downgrade abx. will guide abx with culture results. Reviewed: Care Plan, H&P, Labs, Medications, Previous Orders, Radiology Changes from previous H/P or p: No Changes General: Per HPI Objective Vitals Vital Signs Date Time Temp Pulse Resp B/P (MAP) Pulse Ox O2 Delivery O2 Flow Rate FiO2 07/22/24 18:44 121/89 07/22/24 16:45 98.8 67 20 97 98.8 07/22/24 08:00 Room Air* 0 21 Intake/Output Intake and Output 07/22/24 07:00 Intake Total 1200 ml Output Total 1300 ml Balance -100 ml Intake Oral 750 ml IV Total 450 ml Output Urine Total 1300 ml Exam - GEN: Healthy appearing, well-developed, NAD. - HEENT: NC/AT, PERRLA, MMM. - CV: RRR, no m/r/g. - LUNGS: CTAB, no w/r/c. - ABD: Soft, NT/ND, NBS, no masses or organomegaly. - EXTREM: Legs cold. Lower extremity pulses weak bilaterally. Left foot in boot, bandage is CDI - NEURO: ambulating. grossly no focal deficits, CN2-12 intact Medications Current Medications Medications Dose Ordered Sig/Carmen Route Start Time Stop Time Status Last Admin Dose Admin Sodium Chloride 10 ml Q8HR IV 07/19/24 22:00 07/22/24 16:06 10 ML Docusate Sodium 100 mg BIDPRN PRN PO 07/19/24 18:30 Acetaminophen 650 mg Q6HP PRN PO 07/19/24 18:30 07/20/24 16:07 650 MG Acetaminophen/ Hydrocodone Bitart 1 tab Q4HP PRN PO 07/19/24 18:30 07/21/24 04:23 1 TAB Hydromorphone HCl 0.5 mg Q4HP PRN IV 07/19/24 18:30 07/22/24 16:05 0.5 MG Ondansetron HCl 4 mg Q4HP PRN IV 07/19/24 18:30 07/20/24 04:12 4 MG Enoxaparin Sodium 40 mg DAILY SC 07/20/24 10:00 07/22/24 10:17 40 MG Hydralazine HCl 10 mg Q6H IV 07/19/24 18:45 07/20/24 18:54 10 MG Pantoprazole Sodium 40 mg DAILY IV 07/20/24 10:00 07/22/24 10:17 40 MG Carvedilol 3.125 mg BID PO 07/19/24 19:00 07/22/24 10:18 3.125 MG Diagnostic Test (Pha) 1 strip ACHS 07/19/24 22:00 07/22/24 17:19 1 STRIP Insulin Human Regular ACHS SC 07/19/24 22:00 07/22/24 18:00 3 UNITS Dextrose 50 ml UD PRN IV 07/19/24 19:00 Piperacillin Sod/ Tazobactam Sod 100 ml @ 25 mls/hr Q8H IV 07/21/24 14:00 07/22/24 16:05 25 MLS/HR Laboratory Results Laboratory Tests 07/22/24 05:13 Chemistry Test 07/22/24 05:13 Albumin 3.6 g/dL (3.2-4.8) Calcium Level 8.8 mg/dL (8.7-10.4) Total Protein 6.4 g/dL (5.7-8.2) LFT Test 07/22/24 05:13 Alanine Aminotransferase (ALT) 22 U/L (7-40) Alkaline Phosphatase 68 U/L (46-116) Aspartate Amino Transferase (AST) 16 U/L (13-40) Total Bilirubin 0.3 mg/dL (0.2-1.0) Microbiology Microbiology Date/Time Source Procedure Growth Status 07/21/24 13:56 Toe Left (Second) Gram Stain - Final Resulted 07/21/24 13:56 Toe Left (Second) Anaerobic Culture - Preliminary Resulted 07/21/24 13:56 Toe Left (Second) Aerobic Culture - Preliminary Resulted 07/19/24 11:23 Blood Blood Culture - Final Staphylococcus aureus Complete Labs and/or images reviewed: Labs reviewed by me, Image(s) reviewed by me Assessment/Plan Assessment/Plan Left 2nd toe osteomyelitis Left foot cellulitis - left foot MRI concerning for osteomyelitis of 2nd toe - UDS positive for meth - 07/22 : downgrade abx. will guide abx with culture results. - podiatry signed off. will need abx at dc per podiatry. - bone bx pending - on broad-spectrum antibiotics with Zosyn (stop vanc) - okay for diabetic diet - social to offer resources for patient homelessness status. Diabetic diet tolerating Diet no GI prophylaxis needed patient ambulating DVT prophylaxis- requiring more bedrest-will need Lovenox Continue med surge admission Plan discussed with: Patient My Orders Orders - RUTHIE SEPULVEDA MD Procedure Category Date Status Time Consistent DIET 07/22/24 [facility] L[facility] Date of Service: Jul 22, 2024 Billing Provider: RUTHIE SEPULVEDA MD Common Visit Codes: [id number] INP/OBS CARE(HIGH) RUTHIE SEPULVEDA MD Jul 22, 2024 20:52
[2024-07-23] VITALS (7 sets, daily range): BP systolic 125–152; BP diastolic 76–86; PULSE 62–74; RESP 18–20; TEMP 97.6–98.3; O2SAT 96–99
[2024-07-23 05:32] LABS: Basophils # (auto) 0 10 ^3/uL (0-0.2); Basophils % (auto) 0.2 % (0.0-2.0); Eosinophils # (auto) 0 10 ^3/uL (0-0.8); Eosinophils % (auto) 0.4 % (0.0-7.0); Hemoglobin 14.5 g/dL (13.5-17.5); Lymphocytes # (auto) 1.7 10 ^3/uL (0.4-5.4); Lymphocytes % (auto) 22.1 % (10.0-50.0); Mean Corpuscular Hgb Conc. 34.6 g/dL (32.0-36.0); Mean Corpuscular Volume 95.4 fL (80.0-100.0); Monocytes # (auto) 0.8 10 ^3/uL (0-1.3); Neutrophils % (auto) 66.3 % (37.0-80.0); Platelet Count (auto) 207 10^3/uL (140-450); Red Cell Distribution Width 13.1 % (11.8-14.3); White Blood Cell 7.5 10^3/uL (4.4-10.8)
[2024-07-23 06:08] LABS: Alanine Aminotransferase 24 U/L (7-40); Albumin 3.5 g/dL (3.2-4.8); Alkaline Phosphatase 64 U/L (46-116); Anion Gap 3 (5-15); Aspartate Aminotransferase 26 U/L (13-40); Blood Urea Nitrogen 15 mg/dL (9-23); Calcium 8.8 mg/dL (8.7-10.4); Carbon Dioxide 31 mmol/L (20-31); Chloride 102 mmol/L (98-107); Glucose 197 mg/dL (74-106); Potassium 3.9 mmol/L (3.5-5.1); Sodium 136 mmol/L (136-145)
[2024-07-23 06:09] LABS: Bilirubin, Total 0.2 mg/dL (0.2-1.0); Total Protein 5.9 g/dL (5.7-8.2)
[2024-07-23] MEDS ORDERED: VANCOMYCIN 1.25GM/250ML 250 ML IV SCH (17:00)
--- NOTE | 2024-07-23 21:09 | DVHPN2 ---
Subjective Patient is 53 years old male presents in ED with a complaint of left 2nd toe pain and redness. Patient states that he has been experiencing redness and swelling on the toe of left foot due to object fall on the toe about 1/2 month ago. Patient states that object fall on his 2nd toe again about three years ago and now he has experienced increased redness and swelling and pain. The patient states that he has ran out of medication and metformin encouraged will not take any medication since then. Patient currently has elevated blood pressure. Patient denies fever chills shortness for breath chest pain abdominal pain nausea vomiting headache or other complaint. No other symptoms or modifying factors at this time. Patient had x3, has steady gait Update - 07/21 : Patient is scheduled for OR today for left 2nd toe amputation/I&D/biopsy. Patient is homeless - 07/22 : downgrade abx. will guide abx with culture results. - 07/23 doing well. no complains. tolearting po, OOB ambulating. dressing CDI. pending bone cultures. Reviewed: Care Plan, H&P, Labs, Medications, Previous Orders, Radiology Changes from previous H/P or p: No Changes General: Per HPI Objective Vitals Vital Signs Date Time Temp Pulse Resp B/P (MAP) Pulse Ox O2 Delivery O2 Flow Rate FiO2 07/23/24 20:49 72 18 152/76 07/23/24 16:45 98.3 96 98.3 07/23/24 08:00 Room Air* 0 21 Intake/Output Intake and Output 07/23/24 07:00 Intake Total 2450 ml Output Total 1450 ml Balance 1000 ml Intake Oral 2250 ml IV Total 200 ml Output Urine Total 1450 ml # Bowel Movements 2 Exam - GEN: Healthy appearing, well-developed, NAD. - HEENT: NC/AT, PERRLA, MMM. - CV: RRR, no m/r/g. - LUNGS: CTAB, no w/r/c. - ABD: Soft, NT/ND, NBS, no masses or organomegaly. - EXTREM: Legs cold. Lower extremity pulses weak bilaterally. Left foot in boot, bandage is CDI - NEURO: ambulating. grossly no focal deficits, CN2-12 intact Medications Current Medications Medications Dose Ordered Sig/Carmen Route Start Time Stop Time Status Last Admin Dose Admin Sodium Chloride 10 ml Q8HR IV 07/19/24 22:00 07/23/24 14:59 10 ML Docusate Sodium 100 mg BIDPRN PRN PO 07/19/24 18:30 Acetaminophen 650 mg Q6HP PRN PO 07/19/24 18:30 07/20/24 16:07 650 MG Acetaminophen/ Hydrocodone Bitart 1 tab Q4HP PRN PO 07/19/24 18:30 07/23/24 15:32 1 TAB Hydromorphone HCl 0.5 mg Q4HP PRN IV 07/19/24 18:30 07/23/24 20:49 0.5 MG Ondansetron HCl 4 mg Q4HP PRN IV 07/19/24 18:30 07/20/24 04:12 4 MG Enoxaparin Sodium 40 mg DAILY SC 07/20/24 10:00 07/23/24 11:16 40 MG Hydralazine HCl 10 mg Q6H IV 07/19/24 18:45 07/20/24 18:54 10 MG Pantoprazole Sodium 40 mg DAILY IV 07/20/24 10:00 07/23/24 11:16 40 MG Carvedilol 3.125 mg BID PO 07/19/24 19:00 07/23/24 11:16 3.125 MG Diagnostic Test (Pha) 1 strip ACHS 07/19/24 22:00 07/23/24 17:00 1 STRIP Insulin Human Regular ACHS SC 07/19/24 22:00 07/23/24 17:00 4 UNITS Dextrose 50 ml UD PRN IV 07/19/24 19:00 Piperacillin Sod/ Tazobactam Sod 100 ml @ 25 mls/hr Q8H IV 07/21/24 14:00 07/23/24 14:59 25 MLS/HR Laboratory Results Laboratory Tests 07/23/24 05:04 Chemistry Test 07/23/24 05:04 Albumin 3.5 g/dL (3.2-4.8) Calcium Level 8.8 mg/dL (8.7-10.4) Total Protein 5.9 g/dL (5.7-8.2) LFT Test 07/23/24 05:04 Alanine Aminotransferase (ALT) 24 U/L (7-40) Alkaline Phosphatase 64 U/L (46-116) Aspartate Amino Transferase (AST) 26 U/L (13-40) Total Bilirubin 0.2 mg/dL (0.2-1.0) Microbiology Microbiology Date/Time Source Procedure Growth Status 07/21/24 13:56 Toe Left (Second) Gram Stain - Final Resulted 07/21/24 13:56 Toe Left (Second) Anaerobic Culture - Preliminary Resulted 07/21/24 13:56 Toe Left (Second) Aerobic Culture - Preliminary Resulted 07/19/24 11:23 Blood Blood Culture - Final Staphylococcus aureus Complete Labs and/or images reviewed: Labs reviewed by me, Image(s) reviewed by me Assessment/Plan Assessment/Plan Left 2nd toe osteomyelitis Left foot cellulitis - left foot MRI concerning for osteomyelitis of 2nd toe - UDS positive for meth - 07/23 doing well. no complains. tolearting po, OOB ambulating. dressing CDI. pending bone cultures. - podiatry signed off. will need abx at dc per podiatry. - bone bx pending - on broad-spectrum antibiotics with Zosyn (stop vanc) - okay for diabetic diet - social to offer resources for patient homelessness status. Diabetic diet tolerating Diet no GI prophylaxis needed patient ambulating DVT prophylaxis- requiring more bedrest-will need Lovenox Continue med surge admission Plan discussed with: Patient Date of Service: Jul 23, 2024 Billing Provider: RUTHIE SEPULVEDA MD Common Visit Codes: [id number] INP/OBS CARE(MOD) RUTHIE SEPULVEDA MD Jul 23, 2024 21:09
[2024-07-24 05:00] VITALS: BP 122/77; PULSE 70; RESP 18; TEMP 96.7; O2SAT 96
[2024-07-24 08:05] VITALS: PULSE 70; RESP 16; O2SAT 98
[2024-07-24 08:55] VITALS: BP 126/81; PULSE 70; RESP 16; TEMP 97.7; O2SAT 98
[2024-07-24 13:00] VITALS: BP 128/75; PULSE 73; RESP 16; TEMP 97.8; O2SAT 99
--- NOTE | 2024-07-24 14:28 | DVH ---
BILATERAL Lower Extremity Arterial Duplex Date: 07/24/2024 01:41 PM Clinical History: EVAL FOR FLOW PAD, pain Comparison: None Technique: Duplex Doppler evaluation including color Doppler and spectral/pulsed waveform analysis of the left l ower extremity arteries was performed. Finding: LEFT: Peak systolic velocities are as follows: ELECTRONICS SCALE TESTER 113 cm/s Deep femoral 80 cm/s SFA proximal 88 cm/s SFA mid-portion 91 cm/s SFA distal 73 cm/s Popliteal 88 cm/s Posterior tibial 111 cm/s Anterior tibial 76 cm/s Dorsalis pedis 68 cm/s The waveforms are triphasic with diastolic flow. There is mild atherosclerotic vascular disease in the left lower extremity arteries. REFERENCE VALUES, [facility] ([facility], [facility]) vascular Imaging Lab Criteria: Peak systolic velocity ranges (in cm/sec) are as follows: <150 cm/s - <20 % stenosis 150-200 cm/s - 20-49% stenosis 200-300 cm/s - 50-75% stenosis >300 cm/s -> 75% stenosis IMPRESSION: There isno evidence forperipheral vascular insufficiency in the left lower extremity. No significant focal stenosis is identified.
[2024-07-24] MEDS ORDERED: CIPR-173 PO (14:53)
--- NOTE | 2024-07-24 14:57 | DVHDS2 ---
Discharge Summary Date of Admission Jul 19, 2024 at 18:26 Date of Discharge: Jul 24, 2024 Admitting Diagnosis osteomyelitis left food. Labs/Diagnostic Data: Laboratory Results Test 07/24/24 11:41 07/23/24 05:04 07/21/24 05:16 07/19/24 11:23 POC Glucose 178 mg/dl (70-106) White Blood Count 7.5 10^3/uL (4.4-10.8) Red Blood Count 4.40 10^6/uL (4.5-5.90) Hemoglobin 14.5 g/dL (13.5-17.5) Hematocrit 42.0 % (41.0-53.0) Mean Corpuscular Volume 95.4 fL (80.0-100.0) Mean Corpuscular Hemoglobin 33.0 pg (28.0-32.0) Mean Corpuscular Hemoglobin Concent 34.6 g/dL (32.0-36.0) Red Cell Distribution Width 13.1 % (11.8-14.3) Platelet Count 207 10^3/uL (140-450) Mean Platelet Volume 8.0 fL (6.9-10.8) Neutrophils (%) (Auto) 66.3 % (37.0-80.0) Lymphocytes (%) (Auto) 22.1 % (10.0-50.0) Monocytes (%) (Auto) 11.0 % (0.0-12.0) Eosinophils (%) (Auto) 0.4 % (0.0-7.0) Basophils (%) (Auto) 0.2 % (0.0-2.0) Neutrophils # (Auto) 5.0 10 ^3/uL (1.6-8.6) Lymphocytes # (Auto) 1.7 10 ^3/uL (0.4-5.4) Monocytes # (Auto) 0.8 10 ^3/uL (0-1.3) Eosinophils # (Auto) 0 10 ^3/uL (0-0.8) Basophils # (Auto) 0 10 ^3/uL (0-0.2) Nucleated Red Blood Cells 0.0 % Sodium Level 136 mmol/L (136-145) Potassium Level 3.9 mmol/L (3.5-5.1) Chloride Level 102 mmol/L (98-107) Carbon Dioxide Level 31 mmol/L (20-31) Anion Gap 3 (5-15) Blood Urea Nitrogen 15 mg/dL (9-23) Creatinine 0.88 mg/dL (0.700-1.30) Glomerular Filtration Rate Calc 102 mL/min (>90) BUN/Creatinine Ratio 17.0 (10.0-20.0) Serum Glucose 197 mg/dL (74-106) Calcium Level 8.8 mg/dL (8.7-10.4) Total Bilirubin 0.2 mg/dL (0.2-1.0) Aspartate Amino Transferase (AST) 26 U/L (13-40) Alanine Aminotransferase (ALT) 24 U/L (7-40) Alkaline Phosphatase 64 U/L (46-116) Total Protein 5.9 g/dL (5.7-8.2) Albumin 3.5 g/dL (3.2-4.8) Prothrombin Time 10.8 sec (9.3-11.8) Prothrombin Time INR 1.02 (0.9-1.15) Activated Partial Thromboplast Time 29.4 SEC (24.5-34.5) Lactic Acid Level 1.6 mmol/L (0.4-2.0) C-Reactive Protein High Sensitivity 2.39 mg/dL (<1.0) Test 07/19/24 11:10 Urine Opiates Screen Neg (NEGATIVE) Urine Fentanyl Screen Neg (NEGATIVE) Urine Barbiturates Screen Neg (NEGATIVE) Urine Phencyclidine Screen Neg (NEGATIVE) Urine Amphetamines Screen Pos (NEGATIVE) Urine Benzodiazepines Screen Neg (NEGATIVE) Urine Cocaine Screen Neg (NEGATIVE) Urine Cannabinoids Screen Neg (NEGATIVE) Other Laboratory Tests 07/23/24 05:04 Brief Hx & Hospital Course: Patient is 53 years old male w pmhx DM, HTN presents in ED with a complaint of left 2nd toe pain and redness. Patient states that he has been experiencing redness and swelling on the toe of left foot due to object fall on the toe about 1/2 month ago. Patient states that object fall on his 2nd toe again about three years ago and now he has experienced increased redness and swelling and pain. The patient states that he has ran out of medication and metformin. on eval with MRI there is evidence of osteomyelitis on left 2nd toe and podiatry takes him to OR for amputation of toe and sample. he is started on vanc/zosyn by podiatry rec. uds w meth+, no leukocytosis. eventually boen Cx grows pansesnsitive MSSA. U/S venous left taken due to concern for left leg pain and swelling, concern for DVT which was negative. then U/S arterial left taken to ensure good bloodflow and was normal. VS stable, patient with plan to finish oral ABx outpatient with plan below. diagnosis: Left 2nd toe osteomyelitis; HTN. DM. visit and planning required 35min discharge plan - cipro 500mg 2x/day for 30 days for Left 2nd toe osteomyelitis - refer to podiatry for close follow-up. podiatry to follow ESR, CRP for treatment progress. - refer to discharge clinic and PCP for review of hospital stay - continue other home meds not mentioned above. Condition at Discharge: Good Final Diagnosis/Problems List left 2nd toe osteomyelitis Discharge Disposition: Home Discharge Instruct/Medications Diet: Consistent carbohydrate Activity: See Comment Activity comment: ambulated with orthopedic shoe for left foot always Follow Up/Referral: discharge clinic, PCP, podiatry Medications: as below Discharge Statement: "Patient was advised to return to the ER or call 911 if any headaches, dizziness, shortness of breath, chest pain, abdominal pain, bleeding, fevers, or worsening of medical condition. Patient was counseled about treatment plan, medications, possible side effects, patientverbalized understanding. All questions were answered to the best of my ability. This discharge took greater then 30 minutes in planning, reviewing documentation, counseling the patient, and discussing with other team members." ASSESSMENT ASSESSMENT Assessment left 2nd toe osteomyelitis Date of Service: Jul 24, 2024 Billing Provider: RUTHIE SEPULVEDA MD Common Visit Codes: [id number] DISCH DAY >30min RUTHIE SEPULVEDA MD Jul 24, 2024 14:57
[2024-07-24 16:41] LABS: Erythrocyte Sedimentation Rate 25 mm/hr (0-20)
[2024-07-24 17:00] VITALS: BP 120/71; PULSE 72; RESP 16; TEMP 97.9; O2SAT 96
[2024-07-24 17:25] VITALS: BP 120/71; PULSE 72; RESP 16; TEMP 97.9; O2SAT 96
== END 2024-07-24 18:05 | disposition home or self-care (01) | DRG 314 ==
LOC: ER 10:34 → OVERFLOW 18:26 → EAST 07-20 12:30
PROVIDERS: ADMIT Internal Medicine; ATTEND Student in an Organized Health Care Education/Training Program
PROC: 0Y6S0Z3 Detachment at Left 2nd Toe, Low, Open Approach (ICD-10-PCS; principal; 2024-07-21 13:02)
DX: E11.69 Type 2 diabetes mellitus with other specified complication (principal); E87.1 Hypo-osmolality and hyponatremia; L03.116 Cellulitis of left lower limb; L97.529 Non-pressure chronic ulcer of other part of left foot with unspecified severity; M86.8X7 Other osteomyelitis, ankle and foot; E11.621 Type 2 diabetes mellitus with foot ulcer; F15.10 Other stimulant abuse, uncomplicated; I16.0 Hypertensive urgency; F17.210 Nicotine dependence, cigarettes, uncomplicated; L02.612 Cutaneous abscess of left foot; Z59.00 Homelessness unspecified; Z91.148 Patient's other noncompliance with medication regimen for other reason; Z79.84 Long term (current) use of oral hypoglycemic drugs
CPT/HCPCS: 36415; 71045; 73630; 73718; 80048; 80053; 80307; 82962; 83605; 85025; 85610; 85652; 85730; 86141; 86850; 86900; 86901; 87040; 87070; 87075; 87077; 87186; 87205; 93926; 93971; G0378; J1100; J1815; J1885; J2405; J2470; J2543; J2704; J7060